=== PATIENT | male | born 1985 | race Caucasian/White ===

== ENCOUNTER 2018-01-12 12:59 | Emergency (ER) | payer MEDICAID ==
[~2018-01-12] VITALS: Ht 182.9 cm; Wt 77.1 kg
--- NOTE | 2018-01-12 13:05 | NUR ---
PRESENTS TO ER C/O ABSCESS IN BOTH BUTTOCKS X 1.5 WEEK. A/OX 4, BREATHING EVEN AND UNLABORED. NO SOB, NAD, VSS. SAFETY AND COMFORT MEASURES IN PLACE. AWAITING MD ORDERS.
[2018-01-12] MEDS ORDERED: IV NS 0.9% 1,000 ML BAG IV ONE (13:30)
--- NOTE | 2018-01-12 13:30 | NUR ---
new iv started on lac, 18g. blood drawn and sent to lab.
[2018-01-12 13:40] LABS: BASOPHILS # (AUTO) 0.1 /CMM (0.0-0.2); BASOPHILS % (AUTO) 0.8 % (0.0-2.0); EOSINOPHILS % (AUTO) 4.8 % (0.0-6.0); HEMATOCRIT 32 % (39-51); HEMOGLOBIN 11.4 g/dL (13.5-17.5); LYMPHOCYTES # (AUTO) 1.7 /CMM (0.8-4.8); LYMPHOCYTES % (AUTO) 17.3 % (20.0-44.0); MEAN CORPUSCULAR HEMOGLOBIN 32 PG (26.0-33.0); MEAN CORPUSCULAR HGB CONC 35 g/dl (31.0-36.0); MEAN CORPUSCULAR VOLUME 92 fL (80-96); MONOCYTES # (AUTO) 1.1 /CMM (0.1-1.30); MONOCYTES % (AUTO) 11.5 % (2.0-12.0); NEUTROPHILS # (AUTO) 6.6 /CMM (1.8-8.9); NEUTROPHILS % (AUTO) 65.6 % (43.0-81.0); PLATELET COUNT (AUTO) 231 /CMM (150-450); RDW COEFFICIENT OF VARIATION 11.7 (11.5-15.0); RED BLOOD CELL COUNT(AUTO) 3.54 MIL/uL (4.5-6.0)
[2018-01-12 13:50] LABS: CALCIUM, SERUM 8.6 mg/dL (8.5-10.1); CARBON DIOXIDE 31 mmol/L (21-32); CHLORIDE 105 mmol/L (98-107); GLUCOSE 107 mg/dL (74-106); POTASSIUM 4.4 mmol/L (3.5-5.1); SODIUM SERUM 139 mmol/L (136-145); UREA NITROGEN, BLOOD 16 mg/dL (7-18)
[2018-01-12 13:55] LABS: INR 0.89 (0.85-1.15)
[2018-01-12 13:56] LABS: ALANINE AMINOTRANSFERASE 29 U/L (12-78); ALBUMIN 2.8 g/dL (3.4-5.0); ALKALINE PHOSPHATASE 77 U/L (46-116); ASPARTATE AMINOTRANSFERASE 19 U/L (15-37); BILIRUBIN,DIRECT 0.1 mg/dL (0.0-0.2); BILIRUBIN,TOTAL 0.2 mg/dL (0.2-1.0); TOTAL PROTEIN, SERUM 6.6 g/dL (6.4-8.2)
[2018-01-12 13:58] LABS: TROPONIN I < 0.017 ng/mL (0.00-0.056)
--- NOTE | 2018-01-12 13:58 | NUR ---
TDAP NOT ADMINISTERED, PATIENT STATING HE ALREADY RECEIVED HIS TDAP VACCINE 1 YEAR AGO.
[2018-01-12] MEDS ORDERED: TDAP [DIPH/PERTUSSIS/TET] 0.5 ML VIAL IM ONE (14:00)
[2018-01-12] MEDS ORDERED: IV NS 0.9% 250 ML IV ONE (14:03)
[2018-01-12] MEDS ORDERED: CT SWABBABLE VALVE TRANS SET 1 EA INFUS.SET MC ONE (14:03)
[2018-01-12] MEDS ORDERED: IOHEXOL-300 100 ML VIAL IV ONE (14:03)
--- NOTE | 2018-01-12 14:12 | NUR ---
PATIENT TAKENT TO CT VIA STRETCHER.
--- NOTE | 2018-01-12 14:21 | NUR ---
PATIENT RETURNED FROM CT IN STABLE CONDITION.
--- NOTE | 2018-01-12 15:12 | NUR ---
Patient discharged to home in stable condition. Written and verbal after care instructions given. Patient verbalizes understanding of instruction.IV removed. Catheter intact and site benign. Pressure and 4x4 applied to site. No bleeding noted.
[2018-01-12 15:13] VITALS: BP 115/68
== END 2018-01-12 15:14 | disposition home or self-care (01) ==
LOC: ER 13:00
DX: L03.317 Cellulitis of buttock (principal); F10.10 Alcohol abuse, uncomplicated; F17.200 Nicotine dependence, unspecified, uncomplicated; F12.10 Cannabis abuse, uncomplicated; F15.10 Other stimulant abuse, uncomplicated; Y90.9 Presence of alcohol in blood, level not specified
CPT/HCPCS: 36415; 71045-TC; 80048-TC; 80076-TC; 83605-TC; 84484-TC; 85025-TC; 85730-TC; 87040-TC; A4606; J7030; J7050; Q9967; Z7610